=== PATIENT | female | born 1960 | race Caucasian/White ===

== ENCOUNTER 2022-09-01 12:41 | Emergency (ER) | payer BC ==
[~2022-09-01] VITALS: Ht 165.1 cm; Wt 86.2 kg
--- NOTE | 2022-09-01 12:59 | NUR ---
Patient to ER bed 01 to gown for evaluation. Side rails up.
[2022-09-01 13:02] VITALS: BP_SYST 152; PULSE 85; RESP 22; TEMP 98.3; O2SAT 98
--- NOTE | 2022-09-01 13:05 | NUR ---
RECEIVED PT MARY BRASHER. PT BIB WITH C/O RIGTH LEG PAIN. SHE STATED THE RIGHT LOWER EXTREMITY HURT AND THE CALF IN JUNE AND THE APPEARS TO MOVING UP HER LEG SINCE THEN, PRESENTLY AT THE BACK OF HER UPPER RIGHT CALF. PT IS [id number]. ON R/A. DENIES N/V/D/C. DISTAL PULSES NORMAL. NO EDEMA NOTED, NO REDNESS OR SWELLING ON RIGHT LE. SIDERAILS UP X2.
--- NOTE | 2022-09-01 13:15 | NUR ---
DR. HONG AT BEDSIDE TO ASSESS PT.
--- NOTE | 2022-09-01 14:58 | NUR ---
Patient given written and verbal discharge instructions and verbalizes understanding. ER MD discussed with patient the results and treatment provided. Patient in stable condition. ID arm band removed.
[2022-09-01 14:59] VITALS: BP_SYST 152; PULSE 85; RESP 22; TEMP 98.3; O2SAT 98
== END 2022-09-01 14:58 | disposition home or self-care (01) ==
LOC: SED 12:41
DX: M79.661 Pain in right lower leg (principal); R03.0 Elevated blood-pressure reading, without diagnosis of hypertension; Z79.899 Other long term (current) drug therapy
CPT/HCPCS: 93971; 99284